=== PATIENT | female | born 1950 | race Caucasian/White ===

== ENCOUNTER 2017-03-26 22:00 | Observation (INO) | payer MEDICARE, BC ==
[2017-03-26] MEDS ORDERED: Sodium Chloride 0.9% 10 ML Syringe FLUSH PRN (23:04)
[2017-03-26] MEDS ORDERED: Ondansetron 4 MG/2 ML SDV IVPUSH ONE (23:04)
--- NOTE | 2017-03-26 23:08 | EDM.PDOC ---
ED HPI GENERAL MEDICAL PROBLEM - General Chief Complaint: Respiratory Problem Stated Complaint: COLD Time Seen by Provider: 03/26/17 22:53 - History of Present Illness INITIAL COMMENTS - FREE TEXT/NARRATIVE: 67 year old female with increasing nausea and vomiting over past 2 days. Treated for bronchitis last week with z-hood and prednisone. Coughing was persisting, seen in clinic yesterday and had a negative chest x-ray. Was sent home with rx for levaquin. Today still coughing and having emesis with dark red emesis. Denies obvious blood. Having some mild epigastric pain. Denies shortness of breath or wheezing. Having some hot flashes, but no obvious fever. Feeling dry, having minimal oral intake today. Denies dizziness. No hx of previous lung issues, is a non-smoker. No hx of ulcers. Onset: Gradual Onset Date: 03/24/17 Improves with: Reports: None Associated Symptoms: Reports: Cough, Loss of Appetite, Nausea/Vomiting. 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 Denies: Fever, Chills HEENT: Reports: No Symptoms Respiratory: Reports: Cough. Denies: Shortness of Breath, Wheezing, Pleuritic Chest Pain, Hemoptysis Cardiovascular: Reports: No Symptoms Endocrine: Reports: No Symptoms GI/Abdominal: Reports: Nausea, Vomiting. Denies: Black Stool, Bloody Stool, Diarrhea, Hematemesis : Reports: No Symptoms Musculoskeletal: Reports: No Symptoms Skin: Reports: No Symptoms Neurological: Reports: No Symptoms, Headache (mild occipital) Psychiatric: Reports: No Symptoms Hematologic/Lymphatic: Reports: No Symptoms ED EXAM, GENERAL - Physical Exam Exam: See Below Exam Limited By: No Limitations General Appearance: Alert, Other (frequent cough, started having hiccups) Ears: Normal External Exam Nose: Normal Inspection, Normal Mucosa Throat/Mouth: Normal Inspection, Normal Oropharynx, Normal Voice Head: Atraumatic, Normocephalic Neck: Normal Inspection, Non-Tender. No: Lymphadenopathy (R), Lymphadenopathy ( L) Respiratory/Chest: No Respiratory Distress, Lungs Clear, Normal Breath Sounds, No Accessory Muscle Use, Chest Non-Tender. No: Rales, Wheezing Cardiovascular: Normal Peripheral Pulses, Regular Rate, Rhythm GI/Abdominal: Normal Bowel Sounds, Soft, Non-Tender. No: Guarding, Rigid, Rebound, Tender Back Exam: Normal Inspection Extremities: Normal Inspection, Normal Range of Motion Neurological: Alert, Oriented, No Motor/Sensory Deficits Psychiatric: Normal Affect, Normal Mood Skin Exam: Warm, Dry Course - Vital Signs Last Recorded V/S: Last Vital Signs Temp 36.7 C 03/26/17 22:23 Pulse 95 03/26/17 23:35 Resp 14 03/26/17 23:35 BP 159/77 H 03/26/17 23:35 Pulse Ox 95 03/26/17 23:35 - Orders/Labs/Meds Orders: Active Orders 24 hr Category Date Time Status Peripheral IV Care [RC] . DIRECTED Care 03/26/17 23:07 Active Sodium Chloride 0.9% [Normal Saline] 500 ml Med 03/26/17 23:15 Active IV .BOLUS Sodium Chloride 0.9% [Saline Flush] Med 03/26/17 23:04 Active 10 ml FLUSH ASDIRECTED PRN Sodium Chloride 0.9% with KCl 20 mEq @ 125 mL/Hr (1000 Med 03/27/17 00:15 Ordered mL) NS + KCl 20mEq/L [Normal Saline with 20 mEq KCl] 1,000 ml IV ASDIRECTED ED Antiemetic Medication Reflex [OM.PC] Click to Edit Oth 03/26/17 23:04 Ordered Peripheral IV Insertion Adult [OM.PC] Urgent Oth 03/26/17 23:04 Ordered Medication Orders Sodium Chloride (Normal Saline) 500 mls @ 1,000 mls/hr IV .BOLUS LEV Last Admin: 03/26/17 23:36 Dose: 1,000 mls/hr Sodium Chloride (Saline Flush) 10 ml FLUSH ASDIRECTED PRN PRN Reason: Keep Vein Open Last Admin: 03/26/17 23:37 Dose: 10 ml Labs: Laboratory Tests 03/26/17 03/26/17 Range/Units 23:22 23:22 WBC 16.9 H (4.5-11.0) K/uL RBC 5.37 (3.30-5.50) M/uL Hgb 15.7 H (12.0-15.0) g/dL Hct 44.1 (36.0-48.0) % MCV 82 (80-98) fL MCH 29 (27-31) pg MCHC 36 (32-36) % Plt Count 345 (150-400) K/uL Neut % (Auto) 68 H (36-66) % Lymph % (Auto) 22 L (24-44) % [place] % (Auto) 10 H (2-6) % Eos % (Auto) 0 L (2-4) % Baso % (Auto) 0 (0-1) % Sodium 121 L (140-148) mmol/L Potassium 3.3 L (3.6-5.2) mmol/L Chloride 82 L (100-108) mmol/L Carbon Dioxide 33 H (21-32) mmol/L Anion Gap 9.3 (5.0-14.0) mmol/L BUN 20 H (7-18) mg/dL Creatinine 1.2 H (0.6-1.0) mg/dL Est Cr Clr Drug Dosing 31.78 mL/min Estimated GFR (MDRD) 45 L (>60) Glucose 126 H (74-106) mg/dL Calcium 8.9 (8.5-10.1) mg/dL Total Bilirubin 0.8 (0.2-1.0) mg/dL AST 29 (15-37) U/L ALT 27 (12-78) U/L Alkaline Phosphatase 70 (46-116) U/L Total Protein 8.5 H (6.4-8.2) g/dL Albumin 3.7 (3.4-5.0) g/dL Globulin 4.8 H (2.3-3.5) g/dL Albumin/Globulin Ratio 0.8 L (1.2-2.2) Lipase 142 (73-393) U/L Meds: Medications Generic Name Dose Route Start Last Admin Trade Name Freq PRN Reason Stop Dose Admin Sodium Chloride 500 mls @ 1,000 mls/hr 03/26/17 23:15 03/26/17 23:36 Normal Saline IV 1,000 mls/hr .BOLUS LEV Administration Sodium Chloride 10 ml 03/26/17 23:04 03/26/17 23:37 Saline Flush FLUSH 10 ml ASDIRECTED PRN Administration Keep Vein Open Discontinued Medications Generic Name Dose Route Start Last Admin Trade Name Freq PRN Reason Stop Dose Admin Ondansetron HCl 4 mg 03/26/17 23:04 03/26/17 23:37 Zofran IVPUSH 03/26/17 23:05 4 mg ONETIME ONE Administration Departure - Departure Time of Disposition: 00:04 Disposition: Refer to Observation Clinical Impression: Hyponatremia - Discharge Information Referrals: PCP,None [Primary Care Provider] - Forms: ED Department Discharge - My Orders Last 24 Hours: My Active Orders 03/26/17 23:04 Sodium Chloride 0.9% [Saline Flush] 10 ml FLUSH ASDIRECTED PRN ED Antiemetic Medication Reflex [OM.PC] Click to Edit Peripheral IV Insertion Adult [OM.PC] Urgent 03/26/17 23:07 Peripheral IV Care [RC] . DIRECTED 03/26/17 23:15 Sodium Chloride 0.9% [Normal Saline] 500 ml IV .BOLUS 03/27/17 00:15 Sodium Chloride 0.9% with KCl 20 mEq @ 125 mL/Hr (1000 mL) NS + KCl 20mEq/L [ Normal Saline with 20 mEq KCl] 1,000 ml IV ASDIRECTED - Assessment/Plan Last 24 Hours: My Active Orders 03/26/17 23:04 Sodium Chloride 0.9% [Saline Flush] 10 ml FLUSH ASDIRECTED PRN ED Antiemetic Medication Reflex [OM.PC] Click to Edit Peripheral IV Insertion Adult [OM.PC] Urgent 03/26/17 23:07 Peripheral IV Care [RC] . DIRECTED 03/26/17 23:15 Sodium Chloride 0.9% [Normal Saline] 500 ml IV .BOLUS 03/27/17 00:15 Sodium Chloride 0.9% with KCl 20 mEq @ 125 mL/Hr (1000 mL) NS + KCl 20mEq/L [ Normal Saline with 20 mEq KCl] 1,000 ml IV ASDIRECTED Assessment:: 67 year old female with cough symptoms, treated for bronchitis with z-pack and prednisone last week and after a normal chest x-ray yesterday started on levaquin. Presents to ED with increased nausea and vomiting with little oral intake. Work-up in the ED with an elevated WBC, and a low sodium at 121 and low potassium at 3.3. She felt somewhat better after an IV bolus, but due to symptoms, will be registered to observation with continued IV fluids, replacement of potassium. She is due for her next dose of levaquin in the AM and will leave up to the hospitalist whether to continue this or not.
[2017-03-26] MEDS ORDERED: Sodium Chloride 0.9% 500 ML IV SCH (23:15)
[2017-03-27] MEDS ORDERED: NS + KCl 20mEq/L 1,000 ML IV SCH (00:15)
--- NOTE | 2017-03-27 01:28 | PCM.HP ---
H&P History of Present Illness - General Date of Service: 03/26/17 Admit Problem/Dx: Admission Diagnosis/Problem Admission Diagnosis/Problem Dehydration Source of Information: Patient History Limitations: Reports: No Limitations - History of Present Illness Initial Comments - Free Text/Narative: INITIAL COMMENTS - FREE TEXT/NARRATIVE: 67 year old female with increasing nausea and vomiting over past 2 days. Treated for bronchitis last week with z-hood and prednisone. Coughing was persisting, seen in clinic yesterday and had a negative chest x-ray. Was sent home with rx for levaquin. Today still coughing and having emesis with dark red emesis. Denies obvious blood. Having some mild epigastric pain. Denies shortness of breath or wheezing. Having some hot flashes, but no obvious fever. Feeling dry, having minimal oral intake today. Denies dizziness. No hx of previous lung issues, is a non-smoker. No hx of ulcers. Onset of Symptoms: Reports: Gradual Duration of Symptoms: Reports: Other (report cold symptoms since mid-February, past week worsen symtoms; cough, n/v/d) Location: Reports: Generalized Severity: Moderate Improves with: Reports: None Worsens with: Reports: None Associated Symptoms: Reports: Fever/Chills, Nausea/Vomiting, Weakness Back of Head Pain Score (Numeric/FACES): 6 - Related Data Allergies/Adverse Reactions: Allergies Allergy/AdvReac Type Severity Reaction Status Date / Time No Known Allergies Allergy Verified 03/26/17 22:28 Home Medications: Home Meds Albuterol Sulfate [Ventolin Hfa] 2 puff INH QID 03/26/17 [History] Hydrochlorothiazide [Hydrochlorothiazide] 25 mg PO DAILY 03/26/17 [History] Levofloxacin [Levofloxacin] 500 mg PO DAILY 03/26/17 [History] Past Medical History 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 now lives alone between [facility]. Sister and Brother live in [place] , one son lives in [place], one son at age 28 yrs from complications of DM Type 1.) H&P Review of Systems - Review of Systems: Review Of Systems: See Below General: Reports: Fever, Chills, Malaise, Weakness, Decreased Appetite HEENT: Reports: No Symptoms Pulmonary: Reports: Cough Cardiovascular: Reports: No Symptoms Gastrointestinal: Reports: Diarrhea (loose stools), Nausea, Vomiting (since Thursday, 4 days of decreased eating and drinking.) Genitourinary: Reports: No Symptoms Musculoskeletal: Reports: No Symptoms Skin: Reports: No Symptoms Psychiatric: Reports: No Symptoms Neurological: Reports: No Symptoms Hematologic/Lymphatic: Reports: No Symptoms Immunologic: Reports: No Symptoms Exam - Exam Exam: See Below - Vital Signs Vital Signs: Last Vital Signs Temp 36.7 C 03/26/17 22:23 Pulse 95 03/26/17 23:35 Resp 14 03/26/17 23:35 BP 159/77 H 03/26/17 23:35 Pulse Ox 95 03/26/17 23:35 Weight: 74 kg - Exam General: Alert, Oriented, Cooperative, Mild Distress (appears mildly ill, frequent hiccups noted.) HEENT: PERRLA, Conjunctiva Clear, EACs Clear, EOMI, Hearing Intact, Mucosa Moist & [place], Nares Patent, Normal Nasal Septum, Posterior Pharynx Clear, Pupils Equal, Pupils Reactive, TMs Clear Neck: Supple, Trachea Midline Lungs: Clear to Auscultation, Normal Respiratory Effort Cardiovascular: Regular Rate, Regular Rhythm, Normal S1, Normal S2 GI/Abdominal Exam: Normal Bowel Sounds, Soft, Non-Tender, No Organomegaly, No Distention (Female) Exam: Deferred Rectal (Female) Exam: Deferred Back Exam: Normal Inspection, Full Range of Motion Extremities: Normal Inspection, Normal Range of Motion, Non-Tender, No Pedal Edema, Normal Capillary Refill Skin: Warm, Dry, Intact Neurological: Cranial Nerves Intact, Reflexes Equal Bilateral Neuro Extensive - Mental Status: Alert, Oriented x3, Normal Mood/Affect, Normal Cognition Psychiatric: Alert, Normal Affect, Normal Mood - Patient Data Lab Results Last 24 hrs: Laboratory Results - last 24 hr 03/26/17 03/26/17 03/27/17 Range/Units 23:22 23:22 00:19 WBC 16.9 H (4.5-11.0) K/uL RBC 5.37 (3.30-5.50) M/uL Hgb 15.7 H (12.0-15.0) g/dL Hct 44.1 (36.0-48.0) % MCV 82 (80-98) fL MCH 29 (27-31) pg MCHC 36 (32-36) % Plt Count 345 (150-400) K/uL Neut % (Auto) 68 H (36-66) % Lymph % (Auto) 22 L (24-44) % [place] % (Auto) 10 H (2-6) % Eos % (Auto) 0 L (2-4) % Baso % (Auto) 0 (0-1) % Sodium 121 L (140-148) mmol/L Potassium 3.3 L (3.6-5.2) mmol/L Chloride 82 L (100-108) mmol/L Carbon Dioxide 33 H (21-32) mmol/L Anion Gap 9.3 (5.0-14.0) mmol/L BUN 20 H (7-18) mg/dL Creatinine 1.2 H (0.6-1.0) mg/dL Est Cr Clr Drug Dosing 31.78 mL/min Estimated GFR (MDRD) 45 L (>60) Glucose 126 H (74-106) mg/dL Lactic Acid (0.4-2.0) mmol/L Calcium 8.9 (8.5-10.1) mg/dL Total Bilirubin 0.8 (0.2-1.0) mg/dL AST 29 (15-37) U/L ALT 27 (12-78) U/L Alkaline Phosphatase 70 (46-116) U/L C-Reactive Protein 0.36 H (0.0-0.3) mg/dL Total Protein 8.5 H (6.4-8.2) g/dL Albumin 3.7 (3.4-5.0) g/dL Globulin 4.8 H (2.3-3.5) g/dL Albumin/Globulin Ratio 0.8 L (1.2-2.2) Amylase 127 H (25-115) U/L Lipase 142 (73-393) U/L 03/27/17 Range/Units 00:19 WBC (4.5-11.0) K/uL RBC (3.30-5.50) M/uL Hgb (12.0-15.0) g/dL Hct (36.0-48.0) % MCV (80-98) fL MCH (27-31) pg MCHC (32-36) % Plt Count (150-400) K/uL Neut % (Auto) (36-66) % Lymph % (Auto) (24-44) % [place] % (Auto) (2-6) % Eos % (Auto) (2-4) % Baso % (Auto) (0-1) % Sodium (140-148) mmol/L Potassium (3.6-5.2) mmol/L Chloride (100-108) mmol/L Carbon Dioxide (21-32) mmol/L Anion Gap (5.0-14.0) mmol/L BUN (7-18) mg/dL Creatinine (0.6-1.0) mg/dL Est Cr Clr Drug Dosing mL/min Estimated GFR (MDRD) (>60) Glucose (74-106) mg/dL Lactic Acid 1.8 (0.4-2.0) mmol/L Calcium (8.5-10.1) mg/dL Total Bilirubin (0.2-1.0) mg/dL AST (15-37) U/L ALT (12-78) U/L Alkaline Phosphatase (46-116) U/L C-Reactive Protein (0.0-0.3) mg/dL Total Protein (6.4-8.2) g/dL Albumin (3.4-5.0) g/dL Globulin (2.3-3.5) g/dL Albumin/Globulin Ratio (1.2-2.2) Amylase (25-115) U/L Lipase (73-393) U/L Result Diagrams: 03/26/17 23:22 03/26/17 23:22 *Q Meaningful Use (ADM) - VTE *Q VTE Criteria *Q: - Stroke *Q Stroke Criteria *Q: - AMI *Q AMI Criteria *Q: - Problem List (1) Hypokalemia, gastrointestinal losses SNOMED Code(s): 27888770 ICD Code: E87.6 - HYPOKALEMIA Status: Acute Priority: Medium Current Visit: Yes (2) Dehydration SNOMED Code(s): 71786141 ICD Code: E86.0 - DEHYDRATION Status: Acute Priority: High Current Visit: Yes (3) Bronchitis SNOMED Code(s): 43872954 ICD Code: J40 - BRONCHITIS, NOT SPECIFIED ACUTE OR CHRONIC Status: Acute Priority: Medium Current Visit: Yes (4) Hyponatremia SNOMED Code(s): 29752529 ICD Code: E87.1 - HYPO-OSMOLALITY AND HYPONATREMIA Status: Acute Priority : Medium Current Visit: Yes Problem List Initiated/Reviewed/Updated: Yes Orders Last 24hrs: Active Orders 24 hr Category Date Time Status Patient Status Manage Transfer [TRANSFER] Routine ADT 03/27/17 01:05 Ordered Peripheral IV Care [RC] . DIRECTED Care 03/26/17 23:07 Active NS + KCl 20mEq/L [Normal Saline with 20 mEq KCl] 1,000 Med 03/27/17 00:15 Active ml IV ASDIRECTED Sodium Chloride 0.9% [Normal Saline] 500 ml Med 03/26/17 23:15 Active IV .BOLUS Sodium Chloride 0.9% [Saline Flush] Med 03/26/17 23:04 Active 10 ml FLUSH ASDIRECTED PRN ED Antiemetic Medication Reflex [OM.PC] Click to Edit Oth 03/26/17 23:04 Ordered Peripheral IV Insertion Adult [OM.PC] Urgent Oth 03/26/17 23:04 Ordered Resuscitation Status Routine Resus Stat 03/27/17 01:06 Ordered Medication Orders Sodium Chloride (Normal Saline) 500 mls @ 1,000 mls/hr IV .BOLUS LEV Last Admin: 03/26/17 23:36 Dose: 1,000 mls/hr Potassium Chloride/Sodium Chloride (Normal Saline With 20 Meq Kcl) 1,000 mls @ 125 mls/hr IV ASDIRECTED LEV Sodium Chloride (Saline Flush) 10 ml FLUSH ASDIRECTED PRN PRN Reason: Keep Vein Open Last Admin: 03/26/17 23:37 Dose: 10 ml Assessment/Plan Comment:: ASSESSMENT / PLAN -Onset: Gradual 67 year old female with cough symptoms, treated for bronchitis with z-pack and prednisone last week and after a normal chest x-ray yesterday started on levaquin. Presents to ED with increased nausea and vomiting with little oral intake. Work-up in the ED with an elevated WBC, and a low sodium at 121 and low potassium at 3.3. She felt somewhat better after an IV bolus, but due to symptoms, will be registered to observation with continued IV fluids, replacement of potassium. She is due for her next dose of levaquin in the AM . Plan -Admit Observation to [address] [place] [address] for further monitoring Dehydration secondary to nausea, vomiting, loose stools -IV fluids for rehydration NS at 125 mL per hour -Advise to notify nurses of any chest pain or other symptoms -And a.m. labs: CBC, BMP Hyponatremia -IV Normal Saline at 125ml/hr -recheck bmp in am Hypokalemia -given one liter NS with 20 kcl in ER -order IV Potassium 20 meq now -recheck K+ in am Bronchitis -continue Levaquin 500mg IV -nebulizer and Duoneb prn wheezing -chest xray in am -blood culture pending -cbc in am Maintenance issues -Orders home meds: on hold -Nutrition: Regular diet -Scanlon catheter not indicated at this time -DVT: ambulate -GI Prophalaxis; Protonix 40mg daily CODE STATUS: Full Admission status: Admit to Observation -I expect this patient to stay less than 24 hours, not to exceed 96 hours for evaluation and management of this problem. Disposition: home Primary care provider: Dr. Stanley Contreras, [facility] hospitalist: Dr. Brown
[2017-03-27] MEDS ORDERED: Morphine 2 MG/ML Syringe IVPUSH PRN (02:03)
[2017-03-27] MEDS ORDERED: LORazepam 2 MG/ML MDV IV PRN (02:03)
[2017-03-27] MEDS ORDERED: Albuterol/Ipratropium 3.0-0.5 MG/3 ML Neb Soln NEB PRN (02:03)
[2017-03-27] MEDS ORDERED: Docusate Sodium 100 MG Cap PO PRN (02:03)
[2017-03-27] MEDS ORDERED: Sodium Chloride 0.9% 1,000 ML IV SCH (02:03)
[2017-03-27] MEDS ORDERED: Lactated Ringers 1,000 ML IV SCH (02:03)
[2017-03-27] MEDS ORDERED: Acetaminophen 325 MG Tab PO PRN (02:03)
[2017-03-27] MEDS ORDERED: Ketorolac 30 MG/ML SDV IVPUSH PRN (02:03)
[2017-03-27] MEDS ORDERED: Ondansetron 4 MG Tab.DIS PO PRN (02:03)
[2017-03-27] MEDS ORDERED: oxyCODONE 5 MG Tab PO PRN (02:03)
[2017-03-27] MEDS ORDERED: Albuterol 0.083% 2.5 MG/3 ML Neb Soln NEB PRN (02:03)
[2017-03-27] MEDS ORDERED: Potassium Chloride 20 MEQ in Premix Bag 1 BAG IV ONE (02:03)
[2017-03-27] MEDS ORDERED: Pantoprazole 40 MG Vial IV ONE (02:03)
[2017-03-27] MEDS: Zolpidem 5 MG Tab PO SCH ×2 (04:51→20:46)
[2017-03-27] MEDS ORDERED: Levofloxacin/Dextrose 5%-Water 500 MG in Premix Bag 1 BAG IV SCH (09:10)
--- NOTE | 2017-03-27 09:12 | CR ---
Heart size within normal limits. Bronchial wall thickening can indicate bronchitis. There is a mild i nterstitial thickening which may be chronic. No definitive focal consolidation.
[2017-03-27] MEDS ORDERED: FLU Vacc TS 2017-18 (65yr UP)/PF 180 MCG/0.5 ML Syringe IM ONE (10:00)
[2017-03-27] MEDS ORDERED: Potassium Chloride 40 MEQ in Premix Bag 1 BAG IV ONE (11:36)
[2017-03-27] MEDS ORDERED: Potassium Chloride 20 MEQ Tab.ER PO ONE (12:00)
[2017-03-27] MEDS: Magnesium Oxide 400 MG Tab PO SCH ×2 (12:49→20:41)
[2017-03-27] MEDS: Magnesium Sulfate/Water 2 GM in Premix Bag 1 BAG IV SCH ×2 (12:52→20:38)
[2017-03-27] MEDS ORDERED: Enoxaparin 40 MG/0.4 ML Syringe SUBCUT SCH (13:00)
[2017-03-27] MEDS: Potassium Chloride 20 MEQ, Lidocaine 1% 2 ML in Sodium Chloride 0.9% 100 ML IV SCH ×2 (14:56→17:47)
--- NOTE | 2017-03-27 14:56 | PCM.PN ---
- General Info Date of Service: 03/27/17 Functional Status: Reports: Pain Controlled, Tolerating Diet, Ambulating - Review of Systems General: Reports: Weakness. Denies: Fever, Chills Pulmonary: Reports: Cough. Denies: Shortness of Breath, Pleuritic Chest Pain, Sputum, Hemoptysis, Wheezing Cardiovascular: Reports: No Symptoms Gastrointestinal: Denies: Abdominal Pain, Diarrhea, Hematochezia, Melena, Nausea , Vomiting Systems Review Comment:: This patient has been stable since admission early this morning. She had symptoms of upper respiratory tract infection and then developed nausea vomiting and loose stools. No evidence of infiltrate noted on chest x-ray, she had been started on levofloxacin as an outpatient and this has been continued on admission. Since admission her nausea vomiting have resolved and she is no longer experiencing loose stools. Continues to have a cough with minimal sputum production. She has been afebrile and hemodynamically stable. - Patient Data Vitals - Most Recent: Last Vital Signs Temp 98.3 F 03/27/17 12:00 Pulse 75 03/27/17 12:00 Resp 18 03/27/17 12:00 BP 149/70 H 03/27/17 12:00 Pulse Ox 96 03/27/17 12:00 Weight - Most Recent: 165 lb 0.009 oz I&O - Last 24 Hours: Intake & Output 03/26/17 03/27/17 03/27/17 22:59 06:59 14:59 Intake Total 500 1000 Output Total 800 Balance 500 200 Lab Results Last 24 Hours: Laboratory Results - last 24 hr 03/27/17 03/27/17 Range/Units 05:50 05:50 WBC 13.1 H (4.5-11.0) K/uL RBC 4.71 (3.30-5.50) M/uL Hgb 13.9 (12.0-15.0) g/dL Hct 39.0 (36.0-48.0) % MCV 83 (80-98) fL MCH 30 (27-31) pg MCHC 36 (32-36) % Plt Count 283 (150-400) K/uL Neut % (Auto) 63 (36-66) % Lymph % (Auto) 23 L (24-44) % [place] % (Auto) 13 H (2-6) % Eos % (Auto) 1 L (2-4) % Baso % (Auto) 0 (0-1) % Sodium 123 L (140-148) mmol/L Potassium 3.2 L (3.6-5.2) mmol/L Chloride 89 L (100-108) mmol/L Carbon Dioxide 29 (21-32) mmol/L Anion Gap 8.2 (5.0-14.0) mmol/L BUN 18 (7-18) mg/dL Creatinine 1.1 H (0.6-1.0) mg/dL Est Cr Clr Drug Dosing 34.67 mL/min Estimated GFR (MDRD) 49 L (>60) Glucose 95 (74-106) mg/dL Calcium 7.9 L (8.5-10.1) mg/dL Magnesium 1.2 L (1.8-2.4) mg/dL Med Orders - Current: Current Medications Acetaminophen (Tylenol) 650 mg PO Q4H PRN PRN Reason: Pain (Mild 1-3)/fever Last Admin: 03/27/17 08:30 Dose: 650 mg Albuterol (Proventil Neb Soln) 2.5 mg NEB Q4H PRN PRN Reason: Shortness Of Breath/wheezing Albuterol/Ipratropium (Duoneb 3.0-0.5 Mg/3 Ml) 3 ml NEB QID PRN PRN Reason: Shortness Of Breath/wheezing Docusate Sodium (Colace) 100 mg PO BID PRN PRN Reason: Constipation Enoxaparin Sodium (Lovenox) 40 mg SUBCUT Q24H [facility] Last Admin: 03/27/17 12:50 Dose: 40 mg Levofloxacin/Dextrose 500 mg/ (Premix) 100 mls @ 100 mls/hr IV Q48H [facility] Last Admin: 03/27/17 10:32 Dose: 100 mls/hr Magnesium Sulfate 2 gm/ Premix 50 mls @ 25 mls/hr IV Q6H [facility] Stop: 03/28/17 01:59 Last Admin: 03/27/17 12:52 Dose: 25 mls/hr Potassium Chloride 20 meq/Lidocaine HCl 2 ml/ Sodium Chloride 112 mls @ 55 mls/ hr IV Q2H [facility] Stop: 03/27/17 16:59 Sodium Chloride (Normal Saline) 1,000 mls @ 75 mls/hr IV ASDIRECTED [facility] Influenza Virus Vaccine (Fluzone High-Dose 2016-) 180 mcg IM .ONCE ONE Stop: 03/28/17 10:01 Ketorolac Tromethamine (Toradol) 30 mg IVPUSH Q8H PRN PRN Reason: Pain Stop: 04/01/17 01:21 Last Admin: 03/27/17 02:22 Dose: 30 mg Lorazepam (Ativan) 1 mg IV Q6H PRN PRN Reason: Nausea/Vomiting Magnesium Oxide (Magnesium Oxide) 400 mg PO BID [facility] Last Admin: 03/27/17 12:49 Dose: 400 mg Morphine Sulfate (Morphine) 2 mg IVPUSH Q2H PRN PRN Reason: Pain (severe 7-10) Ondansetron HCl (Zofran Odt) 4 mg PO Q6H PRN PRN Reason: Nausea able to take PO Oxycodone HCl (Oxycodone) 5 mg PO Q4H PRN PRN Reason: Pain (moderate 4-6) Sodium Chloride (Saline Flush) 10 ml FLUSH ASDIRECTED PRN PRN Reason: Keep Vein Open Last Admin: 03/26/17 23:37 Dose: 10 ml Zolpidem Tartrate (Ambien) 5 mg PO BEDTIME [facility] Last Admin: 03/27/17 04:51 Dose: Not Given Discontinued Medications Sodium Chloride (Normal Saline) 500 mls @ 1,000 mls/hr IV .BOLUS [facility] Last Admin: 03/26/17 23:36 Dose: 1,000 mls/hr Potassium Chloride/Sodium Chloride (Normal Saline With 20 Meq Kcl) 1,000 mls @ 125 mls/hr IV ASDIRECTED [facility] Lactated Ringer's (Ringers, Lactated) 1,000 mls @ 125 mls/hr IV ASDIRECTED [facility] Potassium Chloride 20 meq/ (Premix) 100 mls @ 50 mls/hr IV ONETIME ONE Stop: 03/27/17 04:02 Last Admin: 03/27/17 02:30 Dose: 50 mls/hr Sodium Chloride (Normal Saline) 1,000 mls @ 125 mls/hr IV ASDIRECTED [facility] Last Admin: 03/27/17 08:22 Dose: 125 mls/hr Influenza Virus Vaccine (Pharmacy To Dose - Influenza Vaccine) 1 each IM ONETIME ONE Stop: 03/27/17 02:15 Lidocaine HCl (Xylocaine-Mpf 1%) 2 ml INJECT ONETIME ONE Stop: 03/27/17 02:22 Last Admin: 03/27/17 02:30 Dose: 2 ml Ondansetron HCl (Zofran) 4 mg IVPUSH ONETIME ONE Stop: 03/26/17 23:05 Last Admin: 03/26/17 23:37 Dose: 4 mg Pantoprazole Sodium (Protonix Iv) 40 mg IV ONETIME ONE Stop: 03/27/17 02:04 Last Admin: 03/27/17 02:23 Dose: 40 mg Potassium Chloride (Klor-Con M20) 40 meq PO ONETIME ONE Stop: 03/27/17 12:01 Last Admin: 03/27/17 12:49 Dose: 40 meq - Exam Quality Assessment: DVT Prophylaxis General: Alert, Oriented, Cooperative, Mild Distress Lungs: Normal Respiratory Effort, Rhonchi. No: Crackles, Rales, Rub, Stridor, Wheezing Cardiovascular: Regular Rate, Regular Rhythm, No Murmurs GI/Abdominal Exam: Normal Bowel Sounds, Soft, Non-Tender, No Distention Extremities: Non-Tender, No Pedal Edema Skin: Warm, Dry, Intact - Problem List Review Problem List Initiated/Reviewed/Updated: Yes - My Orders Last 24 Hours: My Active Orders 03/27/17 12:00 Magnesium Oxide 400 mg PO BID Magnesium Sulfate/Water [Magnesium Sulfate 2 GM in Water 50 ML] 2 gm Premix Bag 1 bag IV Q6H 03/27/17 13:00 Enoxaparin [Lovenox] 40 mg SUBCUT Q24H Potassium Chloride 20 meq Lidocaine 1% [Xylocaine 1%] 2 ml Sodium Chloride 0.9 % [Normal Saline] 100 ml IV Q2H 03/27/17 15:00 Sodium Chloride 0.9% @ 75 MLS/HR(1000ml) Sodium Chloride 0.9% [Normal Saline] 1 ,000 ml IV ASDIRECTED 03/28/17 05:00 BASIC METABOLIC PANEL,BMP [CHEM] Timed CBC WITH AUTO DIFF [HEME] Timed MAGNESIUM [CHEM] Timed - Plan Plan:: ASSESSMENT / PLAN GASTROENTERITIS-significantly improved since admission and with hydration. Nausea and vomiting have totally resolved and she's been tolerating a regular diet -Decrease IV fluids to 75 mL/h -Advise to notify nurses of any chest pain or other symptoms -And a.m. labs: CBC, BMP Hyponatremia -IV Normal Saline at 75ml/hr -recheck bmp in am Hypokalemia -IV and oral potassium supplementation -recheck K+ in am Hypomagnesemia -IV and oral magnesium replacement -Recheck magnesium level in a.m. Bronchitis-chest x-ray shows no obvious infiltrate, persistent cough, minimal sputum production. Viral versus bacterial -continue Levaquin 500mg IV -nebulizer and Duoneb prn wheezing -blood culture pending -cbc in am Maintenance issues -Orders home meds: on hold -Nutrition: Regular diet -Scanlon catheter not indicated at this time -DVT: ambulate -GI Prophalaxis; Protonix 40mg daily CODE STATUS: Full Admission status: Admit to Observation -I expect this patient to stay less than 24 hours, not to exceed 96 hours for evaluation and management of this problem. Disposition: home Primary care provider: Dr. Stanley Contreras, [facility] hospitalist: Dr. Brown
[2017-03-27] MEDS: Sodium Chloride 0.9% 1,000 ML IV SCH (17:50)
[2017-03-28] MEDS: Magnesium Sulfate/Water 2 GM in Premix Bag 1 BAG IV SCH (00:06)
[2017-03-28] MEDS: Sodium Chloride 0.9% 1,000 ML IV SCH (07:04)
[2017-03-28] MEDS: Magnesium Oxide 400 MG Tab PO SCH (09:37)
[2017-03-28] MEDS ORDERED: FLU Vacc TS 2017-18 (65yr UP)/PF 180 MCG/0.5 ML Syringe IM ONE (10:00)
--- NOTE | 2017-03-28 10:23 | PCM.DCSUM1 ---
Discharge Summary - Hospital Course Brief History: Ms. Rivera is a 67-year-old woman who is admitted through the emergency department observation status with weakness and dehydration secondary to gastroenteritis with nausea and vomiting as well as upper respiratory tract infection. - Discharge Data Discharge Date: 03/28/17 Discharge Disposition: Home, Self-Care 01 Condition: Fair - Discharge Diagnosis/Problem(s) (1) Hypomagnesemia SNOMED Code(s): 339216227 ICD Code: E83.42 - HYPOMAGNESEMIA Status: Acute Current Visit: Yes (2) Gastroenteritis SNOMED Code(s): 17379016 ICD Code: K52.9 - NONINFECTIVE GASTROENTERITIS AND COLITIS, UNSPECIFIED Status: Acute Current Visit: Yes (3) Hyponatremia SNOMED Code(s): 59636247 ICD Code: E87.1 - HYPO-OSMOLALITY AND HYPONATREMIA Status: Acute Priority : Medium Current Visit: Yes (4) Hypokalemia, gastrointestinal losses SNOMED Code(s): 55178789 ICD Code: E87.6 - HYPOKALEMIA Status: Acute Priority: Medium Current Visit: Yes (5) Dehydration SNOMED Code(s): 66232173 ICD Code: E86.0 - DEHYDRATION Status: Acute Priority: High Current Visit: Yes (6) Bronchitis SNOMED Code(s): 12604371 ICD Code: J40 - BRONCHITIS, NOT SPECIFIED ACUTE OR CHRONIC Status: Acute Priority: Medium Current Visit: Yes - Patient Summary/Data Consults: Consultations 03/27/17 02:03 OT Evaluation and Treatment [CONS] Routine Please Evaluate and Treat. OT Reason for Consult: Discharge Planning This query below is only for informational purposes and is not editable. Hospital Course: Ms. Rivera is a 67-year-old woman was admitted through the emergency department to observation status because of weakness and dehydration. Illness started about 1 week prior to admission with upper respiratory tract infection and cough , associated with fever and chills. These symptoms persisted throughout the week and then 2 days prior to admission developed nausea and vomiting that was unrelenting over the 2 day period of time. She had been seen in the clinic or to admission and started on oral antibiotic therapy with levofloxacin because of her respiratory tract infection. On evaluation in the emergency department was noted to have significant hyponatremia with a sodium of 122, hypokalemia, and mild elevation in her creatinine level from baseline. She was admitted to observation status and given IV fluids for hydration and management of her hyponatremia. Later in the morning after admission magnesium level was obtained and found to be significantly low. She was given IV and oral potassium supplementation as well as IV and oral magnesium replacement. Anti-medic therapy was given as needed. By the morning of discharge she was feeling significantly improved, still had a cough but her white blood cell count had portably normalized. Magnesium and potassium levels were within acceptable range and her sodium level had increased to 137, creatinine had normalized at 1.0. She will continue oral antibiotic therapy with levofloxacin, activity will be as tolerated and she will resume her usual diet. Follow-up appointment will be scheduled with her primary care provider within one week. - Patient Instructions Diet: Usual Diet as Tolerated Activity: As Tolerated Other/Special Instructions: Please schedule follow-up appointment with primary care provider within one week. - Discharge Plan Home Medications: Home Meds Albuterol Sulfate [Ventolin Hfa] 2 puff INH QID 03/26/17 [History] Hydrochlorothiazide 25 mg PO DAILY 03/26/17 [History] Levofloxacin 500 mg PO DAILY 03/26/17 [History] - Patient Data Vitals - Most Recent: Last Vital Signs Temp 97.7 F 03/28/17 07:29 Pulse 76 03/28/17 07:29 Resp 18 03/28/17 07:29 BP 135/70 03/28/17 07:29 Pulse Ox 95 03/28/17 07:29 Weight - Most Recent: 165 lb 0.009 oz I&O - Last 24 hours: Intake & Output 03/27/17 03/28/17 03/28/17 22:59 06:59 14:59 Intake Total 1569 Output Total 3350 1800 700 Balance -1781 -1800 -700 Lab Results - Last 24 hrs: Laboratory Results - last 24 hr 03/28/17 03/28/17 Range/Units 05:30 05:30 WBC 9.3 (4.5-11.0) K/uL RBC 4.74 (3.30-5.50) M/uL Hgb 13.7 (12.0-15.0) g/dL Hct 40.6 (36.0-48.0) % MCV 86 (80-98) fL MCH 29 (27-31) pg MCHC 34 (32-36) % Plt Count 291 (150-400) K/uL Neut % (Auto) 53 (36-66) % Lymph % (Auto) 31 (24-44) % [place] % (Auto) 14 H (2-6) % Eos % (Auto) 1 L (2-4) % Baso % (Auto) 1 (0-1) % Sodium 137 L (140-148) mmol/L Potassium 4.1 (3.6-5.2) mmol/L Chloride 105 (100-108) mmol/L Carbon Dioxide 27 (21-32) mmol/L Anion Gap 9.1 (5.0-14.0) mmol/L BUN 13 (7-18) mg/dL Creatinine 1.0 (0.6-1.0) mg/dL Est Cr Clr Drug Dosing 38.14 mL/min Estimated GFR (MDRD) 55 L (>60) Glucose 90 (74-106) mg/dL Calcium 7.8 L (8.5-10.1) mg/dL Magnesium 2.5 H D (1.8-2.4) mg/dL [facility] Results - Last 24 hrs: Microbiology 03/27/17 02:20 Aerobic Blood Culture - Preliminary Blood - Venous - Lab Draw NO GROWTH AFTER 1 DAY Anaerobic Blood Culture - Preliminary NO GROWTH AFTER 1 DAY 03/27/17 02:10 Aerobic Blood Culture - Preliminary Blood - Venous NO GROWTH AFTER 1 DAY Anaerobic Blood Culture - Preliminary NO GROWTH AFTER 1 DAY Med Orders - Current: Current Medications Acetaminophen (Tylenol) 650 mg PO Q4H PRN PRN Reason: Pain (Mild 1-3)/fever Last Admin: 03/27/17 08:30 Dose: 650 mg Albuterol (Proventil Neb Soln) 2.5 mg NEB Q4H PRN PRN Reason: Shortness Of Breath/wheezing Albuterol/Ipratropium (Duoneb 3.0-0.5 Mg/3 Ml) 3 ml NEB QID PRN PRN Reason: Shortness Of Breath/wheezing Docusate Sodium (Colace) 100 mg PO BID PRN PRN Reason: Constipation Enoxaparin Sodium (Lovenox) 40 mg SUBCUT Q24H [facility] Last Admin: 03/27/17 12:50 Dose: 40 mg Levofloxacin/Dextrose 500 mg/ (Premix) 100 mls @ 100 mls/hr IV Q48H [facility] Last Admin: 10/20/17 10:32 Dose: 100 mls/hr Sodium Chloride (Normal Saline) 1,000 mls @ 75 mls/hr IV ASDIRECTED [facility] Last Admin: 03/28/17 07:04 Dose: 75 mls/hr Ketorolac Tromethamine (Toradol) 30 mg IVPUSH Q8H PRN PRN Reason: Pain Stop: 04/01/17 01:21 Last Admin: 03/27/17 02:22 Dose: 30 mg Lorazepam (Ativan) 1 mg IV Q6H PRN PRN Reason: Nausea/Vomiting Magnesium Oxide (Magnesium Oxide) 400 mg PO BID [facility] Last Admin: 03/28/17 09:37 Dose: 400 mg Morphine Sulfate (Morphine) 2 mg IVPUSH Q2H PRN PRN Reason: Pain (severe 7-10) Ondansetron HCl (Zofran Odt) 4 mg PO Q6H PRN PRN Reason: Nausea able to take PO Oxycodone HCl (Oxycodone) 5 mg PO Q4H PRN PRN Reason: Pain (moderate 4-6) Sodium Chloride (Saline Flush) 10 ml FLUSH ASDIRECTED PRN PRN Reason: Keep Vein Open Last Admin: 03/26/17 23:37 Dose: 10 ml Zolpidem Tartrate (Ambien) 5 mg PO BEDTIME [facility] Last Admin: 03/27/17 20:46 Dose: 5 mg Discontinued Medications Sodium Chloride (Normal Saline) 500 mls @ 1,000 mls/hr IV .BOLUS [facility] Last Admin: 03/26/17 23:36 Dose: 1,000 mls/hr Potassium Chloride/Sodium Chloride (Normal Saline With 20 Meq Kcl) 1,000 mls @ 125 mls/hr IV ASDIRECTED [facility] Lactated Ringer's (Ringers, Lactated) 1,000 mls @ 125 mls/hr IV ASDIRECTED [facility] Potassium Chloride 20 meq/ (Premix) 100 mls @ 50 mls/hr IV ONETIME ONE Stop: 03/27/17 04:02 Last Admin: 03/27/17 02:30 Dose: 50 mls/hr Sodium Chloride (Normal Saline) 1,000 mls @ 125 mls/hr IV ASDIRECTED [facility] Last Admin: 03/27/17 08:22 Dose: 125 mls/hr Magnesium Sulfate 2 gm/ Premix 50 mls @ 25 mls/hr IV Q6H [facility] Stop: 03/28/17 01:59 Last Admin: 03/28/17 00:06 Dose: 25 mls/hr Potassium Chloride 20 meq/Lidocaine HCl 2 ml/ Sodium Chloride 112 mls @ 55 mls/ hr IV Q2H [facility] Stop: 03/27/17 16:59 Last Admin: 03/27/17 17:47 Dose: 55 mls/hr Influenza Virus Vaccine (Pharmacy To Dose - Influenza Vaccine) 1 each IM ONETIME ONE Stop: 03/27/17 02:15 Influenza Virus Vaccine (Fluzone High-Dose 2016-) 180 mcg IM .ONCE ONE Stop: 03/28/17 10:01 Last Admin: 03/28/17 09:37 Dose: 180 mcg Lidocaine HCl (Xylocaine-Mpf 1%) 2 ml INJECT ONETIME ONE Stop: 03/27/17 02:22 Last Admin: 03/27/17 02:30 Dose: 2 ml Ondansetron HCl (Zofran) 4 mg IVPUSH ONETIME ONE Stop: 03/26/17 23:05 Last Admin: 03/26/17 23:37 Dose: 4 mg Pantoprazole Sodium (Protonix Iv) 40 mg IV ONETIME ONE Stop: 03/27/17 02:04 Last Admin: 03/27/17 02:23 Dose: 40 mg Potassium Chloride (Klor-Con M20) 40 meq PO ONETIME ONE Stop: 03/27/17 12:01 Last Admin: 03/27/17 12:49 Dose: 40 meq *Q Meaningful Use (DIS) - VTE *Q VTE Criteria *Q: - Stroke *Q Stroke Criteria *Q: - AMI *Q AMI Criteria *Q:
== END 2017-03-28 12:45 | disposition home or self-care (01) ==
LOC: JP.ED 22:00 → JP.MS 03-27 01:05
PROVIDERS: ADMIT Hospitalist; ATTEND Hospitalist
DX: K52.9 Noninfective gastroenteritis and colitis, unspecified (principal); E83.42 Hypomagnesemia; E87.1 Hypo-osmolality and hyponatremia; E86.0 Dehydration; J40 Bronchitis, not specified as acute or chronic; I10 Essential (primary) hypertension; Z79.899 Other long term (current) drug therapy; Z23 Encounter for immunization
CPT/HCPCS: 36415; 71020; 80048; 80053; 82150; 83605; 83690; 83735; 85025; 86140; 87040; 96361; 96365; 96366; 96367; 96372; 96375; 96376; 99217; 99219; 99284; 99285; A9270; C9113; G0008; G0378; J1650; J1885; J1956; J2405; J3475; J3480; J7030; J7040; J7050; 90662; 96374

== ENCOUNTER 2021-12-27 09:32 | Day surgery (SDC) | payer BC, MEDICARE ==
[~2021-12-27 09:32] MED LIST: Lactated Ringers 1,000 ML IV SCH
[2021-12-27] MEDS ORDERED: fentaNYL 100 MCG/2 ML SDV ONE (10:24)
[2021-12-27] MEDS ORDERED: Midazolam 1 MG/ML 2 ML SDV ONE (10:24)
[2021-12-27] MEDS ORDERED: Propofol 200 MG/20 ML SDV ONE (10:24)
== END 2021-12-27 13:55 | disposition home or self-care (01) ==
LOC: JP.SDS 09:32
PROVIDERS: ATTEND Family Medicine
DX: R19.5 Other fecal abnormalities (principal); I10 Essential (primary) hypertension; K21.9 Gastro-esophageal reflux disease without esophagitis; Z98.890 Other specified postprocedural states; Z79.899 Other long term (current) drug therapy
CPT/HCPCS: 45378; J2250; J2704; J3010; J7120